=== PATIENT | male | born 1965 | race Caucasian/White ===

== ENCOUNTER 2025-04-10 06:16 | Inpatient (IN) | payer MEDICARE, OTHER ==
[~2025-04-10] VITALS: Ht 157.5 cm; Wt 78.2 kg
[2025-04-10] VITALS (58 sets, daily range): BP systolic 47–117; BP diastolic 17–89; PULSE 102–141; RESP 12–33; TEMP 36.5–36.6; O2SAT 77–92
[~2025-04-10 06:16] MED LIST: ACET-2708 MT; ASPI-1406 MT; ATOR-2 MT; CHOL400D7 PO; GABA-1180 PO; IBUP-2029 MT; MAGN400C MT; MELA5TAB19 MT; METH-773 MT; TAMS-54 MT
[2025-04-10] MEDS ORDERED: CEFEPIME 2GM IN DEXT 5% 100ML IV ONE (06:45)
[2025-04-10] MEDS ORDERED: CEFEPIME 2GM/50ML DUPLEX 50 ML IV NR (07:00)
[2025-04-10 07:36] LABS: HEMATOCRIT. 44.2 % (42.0-52.0); HEMOGLOBIN. 14.9 g/dL (14.0-18.0); MEAN CORPUSCULAR HEMOGLOBIN 30.3 pg (28.0-32.0); MEAN CORPUSCULAR HGB CONC 33.7 g/dL (31.0-37.0); MEAN CORPUSCULAR VOLUME 89.7 fL (80.0-94.0); MEAN PLATELET VOLUME 9.5 fl (7.4-10.4); PLATELET 82 x1000/uL (130-400); RED BLOOD CELL COUNT 4.92 mill/uL (4.7-6.1); RED CELL DISTRIBUTION WIDTH 22.8 % (11.6-14.6); WHITE BLOOD COUNT 12.4 x1000/uL (4.5-11.0)
[2025-04-10 07:38] LABS: DIFFERENTIAL COMMENT 1
[2025-04-10 07:48] LABS: CHLORIDE 90 mEq/L (98-107); POTASSIUM 3.1 mEq/L (3.5-5.1); SODIUM 128 mEq/L (136-145)
[2025-04-10 07:49] LABS: CALCIUM 7.4 mg/dL (8.7-10.4); CARBON DIOXIDE 25 mEq/L (21-32)
[2025-04-10 07:54] LABS: UREA NITROGEN BLOOD 85 mg/dL (9-23)
[2025-04-10 07:56] LABS: ALANINE AMINOTRANSFERASE 387 IU/L (10-49); ALBUMIN 2.4 g/dL (3.2-4.8); ASPARTATE AMINOTRANSFERASE 285 IU/L (<34); BILIRUBIN DIRECT 12.7 mg/dL (<=3.0); BILIRUBIN TOTAL 17.6 mg/dL (0.1-1.0); PROTEIN TOTAL 5.8 g/dL (6.0-8.3)
[2025-04-10] MEDS: LACTATED RINGERS 1,000 ML IV SCH (08:02)
[2025-04-10] MEDS: METRONIDAZOLE 500 MG PREMIX 100 ML IV ONE (08:03)
[2025-04-10 08:08] LABS: GLUCOSE 123 mg/dL (70-105)
[2025-04-10 08:12] LABS: INR 1.7; PROTHROMBIN TIME 17.1 sec (9.6-11.0)
[2025-04-10 08:13] LABS: ANISOCYTOSIS 3+; PLATELET ESTIMATE DECREASED
[2025-04-10 08:14] LABS: CREATININE 2.8 mg/dL (0.6-1.3)
[2025-04-10 08:22] LABS: TROPONIN I HIGH SENSITIVITY 322 ng/L (3.0-53)
[2025-04-10 08:50] LABS: LACTIC ACID 4.7 mmol/L (0.4-2.0)
[2025-04-10 09:20] LABS: TROPONIN I HIGH SENSITIVITY 398 ng/L (3.0-53)
[2025-04-10] MEDS ORDERED: IPRATROPIUM/ALBUTEROL 0.5-3(2.5)MG/3ML NEB HHN PRN (09:45)
[2025-04-10] MEDS: NOREPINEPHRINE 8MG/250ML PMX 250 ML IV ONE (09:51)
[2025-04-10] MEDS: ONDANSETRON HCL 4MG/2ML INJ IV PRN (10:00)
[2025-04-10] MEDS: MVI, ADULT NO.1 10 ML, FOLIC ACID 1 MG, THIAMINE HCL 100 MG in SODIUM CHLORIDE 0.9% 1,0... IV ONE (11:43)
[2025-04-10 12:25] LABS: HEPATITIS B SURFACE ANTIGEN NEGATIVE (Negative)
[2025-04-10 12:46] LABS: HEPATITIS A AB IGM NEGATIVE (Negative)
[2025-04-10 12:47] LABS: HEPATITIS B CORE AB IGM NEGATIVE (Negative); HEPATITIS C AB NON REACTIVE (Neg) (Negative)
[2025-04-10] MEDS: BLOOD SUGAR DIAGNOSTIC STRIP TEST SCH (12:50)
[2025-04-10 13:09] LABS: AMMONIA 29 uMol/L (<32)
[2025-04-10] MEDS: KCL 20MEQ/100ML PREMIX 100 ML IV SCH (13:10)
[2025-04-10] MEDS: NOREPINEPHRINE 8MG/250ML PMX 250 ML IV PRN (13:11)
[2025-04-10 14:08] LABS: BG BASE EXCESS -2.4 mmol/L (-2.0-3.0); BG CARBOXYHEMOGLOBIN 2.3 % (0.5-1.5); BG DEOXYHEMOGLOBIN 7.6 % (0.0-5.0); BG FRACTION INSPIRED OXYGEN 28; BG HCO3 ACT 21.4 mmol/L (21.0-28.0); BG OXYGEN SATURATION 92.2 % (94.0-98.0); BG OXYHEMOGLOBIN 90.1 % (94.0-98.0); BG PCO2 34.4 mmHg (35.0-48.0); BG PH 7.411 (7.350-7.450); BG PO2 67.2 mmHg (83.0-108.0); BG SAMPLE SITE RIGHT BRACHIAL; BG TOTAL HEMOGLOBIN 15.9 g/dL (13.5-17.5); BG VENT MODE NASAL CANNULA
[2025-04-10] MEDS: MEROPENEM 1G/100ML IV SCH (14:08)
[2025-04-10] MEDS: ALBUMIN HUMAN 25GM/500ML (5%) IV SCH (15:58)
[2025-04-10] MEDS: PHENYLEPHRINE 50MG/250ML PMX 250 ML IV PRN (16:16)
[2025-04-10 16:45] LABS: CLARITY URINE CLOUDY (CLEAR); COLOR URINE DARK YELLOW (YELLOW); GLUCOSE URINE 2+ (NEGATIVE); KETONES URINE NEGATIVE (NEGATIVE); LEUKOCYTE ESTERASE URINE NEGATIVE (NEGATIVE); NITRITE URINE NEGATIVE (NEGATIVE); OCCULT BLOOD URINE 3+ (NEGATIVE); PH URINE 5.5 (4.5-8.0); PROTEIN URINE 1+ (NEGATIVE); SPECIFIC GRAVITY URINE 1.015 (1.005-1.030)
[2025-04-10 16:55] LABS: SODIUM URINE RANDOM 13 mEq/L
[2025-04-10 16:57] LABS: BACTERIA URINE 1+; SQUAMOUS EPITHELIAL CELL URINE 1+ /lpf (RARE/1+); WBC URINE 0-2 /hpf (0-2)
[2025-04-10 17:00] LABS: *AMPHETAMINES SCREEN URINE PRESUMPTIVE POSITIVE (NEGATIVE); *BARBITURATES SCREEN URINE NEGATIVE (NEGATIVE); *BENZODIAZEPINES SCREEN URINE NEGATIVE (NEGATIVE)
[2025-04-10 17:01] LABS: *COCAINE SCREEN URINE NEGATIVE (NEGATIVE); CANNABINOID URINE SCREEN NEGATIVE (NEGATIVE); ECSTASY MDMA SCREEN URINE CONF.TEST INDICATED (NEGATIVE); METHADONE URINE SCREEN NEGATIVE (NEGATIVE); OPIATES URINE SCREEN NEGATIVE (NEGATIVE); PHENCYCLIDINE URINE SCREEN NEGATIVE (NEGATIVE)
[2025-04-10 17:56] LABS: OSMOLALITY URINE 384 mOsm/kg (500-850)
[2025-04-10] MEDS: DOBUTAMINE 250MG PREMIX 250 ML IV PRN (20:33)
[2025-04-10] MEDS: DEXT 5%/0.9% NACL 1,000 ML IV SCH (20:40)
[2025-04-10 20:52] LABS: CREATINE KINASE MB FRACTION 92.7 ng/mL (0.5-3.6)
[2025-04-11] VITALS (98 sets, daily range): BP systolic 72–134; BP diastolic 45–111; PULSE 78–136; RESP 11–32; TEMP 36.2–37.1; O2SAT 97–100
[2025-04-11] MEDS: ALBUMIN HUMAN 25GM/500ML (5%) IV NR (00:03)
[2025-04-11] MEDS: LIDOCAINE HCL 2% 5ML SYRINGE IV NR (00:55)
[2025-04-11] MEDS: PHENYLEPHRINE 100 MG in DEXT 5% WATER 240 ML IV PRN (01:12)
[2025-04-11 01:18] LABS: CREATINE KINASE MB FRACTION 70.1 ng/mL (0.5-3.6)
[2025-04-11] MEDS: NOREPINEPHRINE 32 MG in DEXT 5% WATER 218 ML IV PRN (03:18)
[2025-04-11] MEDS: FENTANYL CITRATE/PF 50MCG/ML 2ML VIAL IV NR (03:52)
[2025-04-11 05:52] LABS: HEMATOCRIT. 36.9 % (42.0-52.0); HEMOGLOBIN. 12.3 g/dL (14.0-18.0); MEAN CORPUSCULAR HGB CONC 33.4 g/dL (31.0-37.0); MEAN CORPUSCULAR VOLUME 89.9 fL (80.0-94.0); MEAN PLATELET VOLUME 9.4 fl (7.4-10.4); PLATELET 96 x1000/uL (130-400); RED BLOOD CELL COUNT 4.11 mill/uL (4.7-6.1); RED CELL DISTRIBUTION WIDTH 22.1 % (11.6-14.6); WHITE BLOOD COUNT 10.6 x1000/uL (4.5-11.0)
[2025-04-11 06:07] LABS: CHLORIDE 92 mEq/L (98-107); POTASSIUM 3.7 mEq/L (3.5-5.1); SODIUM 130 mEq/L (136-145)
[2025-04-11 06:08] LABS: CALCIUM 6.4 mg/dL (8.7-10.4); CARBON DIOXIDE 22 mEq/L (21-32)
[2025-04-11 06:13] LABS: GLUCOSE 184 mg/dL (70-105); TRIGLYCERIDE 115 mg/dL (0-150)
[2025-04-11 06:14] LABS: ALANINE AMINOTRANSFERASE 296 IU/L (10-49); LDL CHOLESTEROL 26 mg/dL (5-100)
[2025-04-11 06:15] LABS: ASPARTATE AMINOTRANSFERASE 202 IU/L (<34); BILIRUBIN DIRECT 13.1 mg/dL (<=3.0); CHOLESTEROL 76 mg/dL (<200); HDL CHOLESTEROL < 20 mg/dL (>55); PROTEIN TOTAL 5.9 g/dL (6.0-8.3); UREA NITROGEN BLOOD 101 mg/dL (9-23)
[2025-04-11 06:17] LABS: THYROID STIMULATING HORMONE 1.18 uIU/mL (0.55-4.78)
[2025-04-11 06:21] LABS: TROPONIN I HIGH SENSITIVITY 1872 ng/L (3.0-53)
[2025-04-11] MEDS: KCL 20MEQ/100ML PREMIX 100 ML IV NR (06:36)
[2025-04-11] MEDS: CALCIUM GLUCONATE 1GM PREMIX 50 ML IV NR (06:36)
[2025-04-11 07:24] LABS: DIFFERENTIAL COMMENT 1
[2025-04-11 10:41] LABS: CREATINE KINASE 1058 IU/L (46-171)
[2025-04-11 12:37] LABS: AMMONIA 39 uMol/L (<32)
[2025-04-11 13:44] LABS: ATYPICAL LYMPHOCYTES 1; NUCLEATED RED BLOOD CELLS 2 /100 WBC
[2025-04-11 13:45] LABS: ANISOCYTOSIS 2+; PLATELET ESTIMATE SLIGHTLY DECREASED
[2025-04-12] VITALS (77 sets, daily range): BP systolic 82–134; BP diastolic 47–82; PULSE 77–92; RESP 0–26; TEMP 36.6–37.1; O2SAT 95–99
[2025-04-12 05:46] LABS: HEMATOCRIT. 34.6 % (42.0-52.0); HEMOGLOBIN. 11.7 g/dL (14.0-18.0); MEAN CORPUSCULAR HEMOGLOBIN 29.9 pg (28.0-32.0); MEAN CORPUSCULAR HGB CONC 33.7 g/dL (31.0-37.0); MEAN CORPUSCULAR VOLUME 88.8 fL (80.0-94.0); MEAN PLATELET VOLUME 8.8 fl (7.4-10.4); PLATELET 90 x1000/uL (130-400); RED CELL DISTRIBUTION WIDTH 22.7 % (11.6-14.6); WHITE BLOOD COUNT 11.5 x1000/uL (4.5-11.0)
[2025-04-12 05:46] LABS: CHLORIDE 94 mEq/L (98-107); POTASSIUM 3.4 mEq/L (3.5-5.1); SODIUM 128 mEq/L (136-145)
[2025-04-12 05:49] LABS: CALCIUM 6.9 mg/dL (8.7-10.4); CARBON DIOXIDE 21 mEq/L (21-32)
[2025-04-12 05:54] LABS: CREATININE 3.1 mg/dL (0.6-1.3); GLUCOSE 123 mg/dL (70-105); UREA NITROGEN BLOOD 96 mg/dL (9-23)
[2025-04-12 05:56] LABS: ALANINE AMINOTRANSFERASE 272 IU/L (10-49); ALBUMIN 2.6 g/dL (3.2-4.8); AMMONIA 24 uMol/L (<32); ASPARTATE AMINOTRANSFERASE 172 IU/L (<34)
[2025-04-12 05:57] LABS: BILIRUBIN TOTAL 15.6 mg/dL (0.1-1.0); PROTEIN TOTAL 5.4 g/dL (6.0-8.3)
[2025-04-12 06:26] LABS: TROPONIN I HIGH SENSITIVITY 1525 ng/L (3.0-53)
[2025-04-12 06:47] LABS: DIFFERENTIAL COMMENT 1
[2025-04-12] MEDS ORDERED: POTASSIUM CHLORIDE 20 MEQ in DEXT 5% WATER 90 ML IV ONE (09:00)
[2025-04-12 09:22] LABS: ANISOCYTOSIS 2+; PLATELET ESTIMATE DECREASED
[2025-04-12] MEDS: KCL 20MEQ/100ML PREMIX 100 ML IV NR (09:22)
[2025-04-12] MEDS: ENOXAPARIN 30MG/0.3ML SYR SUBCUT SCH (09:25)
[2025-04-12] MEDS ORDERED: AZTREONAM 1 G in DEXTROSE 5% WATER 50 ML IV SCH (12:45)
[2025-04-12] MEDS: MIDODRINE HCL 5MG TABLET NG SCH (13:01)
[2025-04-12] MEDS: PANTOPRAZOLE SODIUM 40 MG/VIAL IV SCH (13:01)
[2025-04-12] MEDS ORDERED: METRONIDAZOLE 500 MG PREMIX 100 ML IV SCH (14:00)
[2025-04-12] MEDS ORDERED: VANCOMYCIN 1.5GM/250ML IV NR (14:00)
[2025-04-12] MEDS: VANCOMYCIN 2GM PMX (XELLIA) 400 ML IV SCH (15:15)
[2025-04-12 16:21] LABS: POTASSIUM 3.5 mEq/L (3.5-5.1)
[2025-04-12 23:48] LABS: POTASSIUM 3.4 mEq/L (3.5-5.1)
[2025-04-12 23:50] LABS: CALCIUM 7.3 mg/dL (8.7-10.4)
[2025-04-12 23:54] LABS: CREATININE 3.1 mg/dL (0.6-1.3)
[2025-04-12 23:57] LABS: HEMATOCRIT 35.7 % (42.0-52.0); HEMOGLOBIN 11.9 g/dL (14.0-18.0); MEAN CORPUSCULAR HEMOGLOBIN 29.4 pg (28.0-32.0); MEAN CORPUSCULAR HGB CONC 33.3 g/dL (31.0-37.0); MEAN CORPUSCULAR VOLUME 88.5 fL (80.0-94.0); PLATELET 88 x1000/uL (130-400); RED BLOOD CELL COUNT 4.04 mill/uL (4.7-6.1); RED CELL DISTRIBUTION WIDTH 22.3 % (11.6-14.6); WHITE BLOOD COUNT 11.1 x1000/uL (4.5-11.0)
[2025-04-13] VITALS (82 sets, daily range): BP systolic 69–133; BP diastolic 38–116; PULSE 54–98; RESP 8–31; TEMP 36.4–37.1; O2SAT 94–100
[2025-04-13 05:54] LABS: HEMATOCRIT. 35.9 % (42.0-52.0); HEMOGLOBIN. 12.1 g/dL (14.0-18.0); MEAN CORPUSCULAR HEMOGLOBIN 29.7 pg (28.0-32.0); MEAN CORPUSCULAR HGB CONC 33.7 g/dL (31.0-37.0); MEAN CORPUSCULAR VOLUME 88.2 fL (80.0-94.0); MEAN PLATELET VOLUME 8.9 fl (7.4-10.4); PLATELET 97 x1000/uL (130-400); RED BLOOD CELL COUNT 4.07 mill/uL (4.7-6.1); RED CELL DISTRIBUTION WIDTH 22.3 % (11.6-14.6); WHITE BLOOD COUNT 12.1 x1000/uL (4.5-11.0)
[2025-04-13 06:12] LABS: ALPHA FETOPROTEIN TUMOR MARKER < 1.8 ng/mL (0.0-8.4); CARCINOEMBRYONIC AG - SEND OUT 7.9 ng/mL (0.0-4.7)
[2025-04-13 06:15] LABS: CHLORIDE 100 mEq/L (98-107); POTASSIUM 3.2 mEq/L (3.5-5.1); SODIUM 130 mEq/L (136-145)
[2025-04-13 06:19] LABS: CARBON DIOXIDE 20 mEq/L (21-32)
[2025-04-13 06:20] LABS: CALCIUM 7.7 mg/dL (8.7-10.4)
[2025-04-13 06:23] LABS: PROTEIN TOTAL 5.6 g/dL (6.0-8.3)
[2025-04-13 06:24] LABS: ALANINE AMINOTRANSFERASE 235 IU/L (10-49)
[2025-04-13 06:25] LABS: CREATININE 3.1 mg/dL (0.6-1.3); GLUCOSE 109 mg/dL (70-105); UREA NITROGEN BLOOD 86 mg/dL (9-23)
[2025-04-13 06:26] LABS: ALBUMIN 2.6 g/dL (3.2-4.8); ASPARTATE AMINOTRANSFERASE 148 IU/L (<34); CREATINE KINASE 379 IU/L (46-171)
[2025-04-13 06:27] LABS: PHOSPHORUS 3.6 mg/dL (2.5-4.9)
[2025-04-13] MEDS: DEXT 5%/0.45% NACL 1000ML 1,000 ML IV SCH (06:41)
[2025-04-13 06:54] LABS: BILIRUBIN TOTAL 13.4 mg/dL (0.1-1.0)
[2025-04-13 07:58] LABS: DIFFERENTIAL COMMENT 1
[2025-04-13] MEDS: KCL 20MEQ/100ML PREMIX 100 ML IV NR (08:09)
[2025-04-13] MEDS: MEROPENEM 500MG/50ML 50 ML IV SCH (08:10)
[2025-04-13] MEDS: FUROSEMIDE 40MG/4ML VIAL IVP SCH (08:44)
[2025-04-13] MEDS: POTASSIUM CHLORIDE 10MEQ TABLET SR PO SCH (08:44)
[2025-04-13] MEDS ORDERED: DEXT 5%/0.9% NACL 1,000 ML IV SCH (09:00)
[2025-04-13 11:55] LABS: ANISOCYTOSIS 3+; PLATELET ESTIMATE DECREASED
[2025-04-13 18:41] LABS: POTASSIUM 3.1 mEq/L (3.5-5.1)
[2025-04-13 18:43] LABS: CALCIUM 7.4 mg/dL (8.7-10.4)
[2025-04-14] VITALS (52 sets, daily range): BP systolic 71–111; BP diastolic 43–78; PULSE 80–94; RESP 11–28; TEMP 36.4–37.1; O2SAT 94–100
[2025-04-14] MEDS ORDERED: NALOXONE HCL 0.4MG/ML VIAL IV PRN (00:30)
[2025-04-14] MEDS ORDERED: MORPHINE SULFATE 4 MG/ML INJ (FOR IV/IM USE) IV PRN (00:30)
[2025-04-14 05:29] LABS: HEMATOCRIT. 35.7 % (42.0-52.0); MEAN CORPUSCULAR HEMOGLOBIN 29.7 pg (28.0-32.0); MEAN CORPUSCULAR HGB CONC 33.7 g/dL (31.0-37.0); MEAN PLATELET VOLUME 9.2 fl (7.4-10.4); PLATELET 72 x1000/uL (130-400); RED BLOOD CELL COUNT 4.06 mill/uL (4.7-6.1); RED CELL DISTRIBUTION WIDTH 22.4 % (11.6-14.6); WHITE BLOOD COUNT 9.6 x1000/uL (4.5-11.0)
[2025-04-14 05:41] LABS: INR 1.4; PROTHROMBIN TIME 14.8 sec (9.6-11.0)
[2025-04-14 05:44] LABS: DIFFERENTIAL COMMENT 1
[2025-04-14] MEDS: METRONIDAZOLE 500 MG PREMIX 100 ML IV SCH ×2 (05:52→13:03)
[2025-04-14] MEDS: CEFTRIAXONE 2GM/50ML 50 ML IV SCH (05:53)
[2025-04-14 06:00] LABS: CARBON DIOXIDE 23 mEq/L (21-32); CHLORIDE 101 mEq/L (98-107); POTASSIUM 2.9 mEq/L (3.5-5.1); SODIUM 135 mEq/L (136-145)
[2025-04-14 06:01] LABS: CALCIUM 7.7 mg/dL (8.7-10.4)
[2025-04-14 06:05] LABS: GLUCOSE 78 mg/dL (70-105)
[2025-04-14 06:06] LABS: UREA NITROGEN BLOOD 81 mg/dL (9-23)
[2025-04-14 06:07] LABS: ALANINE AMINOTRANSFERASE 196 IU/L (10-49); ALBUMIN 2.5 g/dL (3.2-4.8); ASPARTATE AMINOTRANSFERASE 170 IU/L (<34)
[2025-04-14 06:08] LABS: BILIRUBIN TOTAL 12.6 mg/dL (0.1-1.0); PHOSPHORUS 3.5 mg/dL (2.5-4.9); PROTEIN TOTAL 5.4 g/dL (6.0-8.3)
[2025-04-14] MEDS: KCL 20MEQ/100ML PREMIX 100 ML IV SCH ×2 (06:14→09:46)
[2025-04-14] MEDS: POTASSIUM CHLORIDE 20MEQ/PACKET PO SCH (06:14)
[2025-04-14] MEDS: DEXTROSE 50% WATER 50ML SYRINGE IV PRN (07:49)
[2025-04-14 08:43] LABS: ANISOCYTOSIS 2+; PLATELET ESTIMATE DECREASED
[2025-04-14] MEDS: FUROSEMIDE 40MG/4ML VIAL IVP SCH (10:15)
[2025-04-14 11:38] LABS: ETHANOL URINE Negative % (Cutoff=0.020)
[2025-04-14 13:10] LABS: POTASSIUM 3.1 mEq/L (3.5-5.1)
[2025-04-14] MEDS: POTASSIUM CHLORIDE 20MEQ TABLET SR PO NR (17:27)
[2025-04-14 18:32] LABS: POTASSIUM 3.1 mEq/L (3.5-5.1)
[2025-04-14 22:19] LABS: POTASSIUM 3.3 mEq/L (3.5-5.1)
[2025-04-14] MEDS: ALBUMIN HUMAN 12.5G/250ML (5%) IV PRN (23:08)
[2025-04-15] VITALS (56 sets, daily range): BP systolic 74–112; BP diastolic 33–83; PULSE 79–98; RESP 10–22; TEMP 36.3–36.7; O2SAT 91–99
[2025-04-15] MEDS: KCL 20MEQ/100ML PREMIX 100 ML IV SCH ×2 (04:58→08:27)
[2025-04-15 05:53] LABS: HEMOGLOBIN. 11.5 g/dL (14.0-18.0); MEAN CORPUSCULAR HEMOGLOBIN 29.7 pg (28.0-32.0); MEAN CORPUSCULAR HGB CONC 33.7 g/dL (31.0-37.0); MEAN PLATELET VOLUME 9.1 fl (7.4-10.4); PLATELET 68 x1000/uL (130-400); RED BLOOD CELL COUNT 3.86 mill/uL (4.7-6.1); RED CELL DISTRIBUTION WIDTH 21.8 % (11.6-14.6); WHITE BLOOD COUNT 8.6 x1000/uL (4.5-11.0)
[2025-04-15 06:01] LABS: CHLORIDE 99 mEq/L (98-107); POTASSIUM 3.2 mEq/L (3.5-5.1); SODIUM 137 mEq/L (136-145)
[2025-04-15 06:02] LABS: CARBON DIOXIDE 27 mEq/L (21-32)
[2025-04-15 06:07] LABS: CREATININE 2.8 mg/dL (0.6-1.3)
[2025-04-15 06:08] LABS: ALANINE AMINOTRANSFERASE 191 IU/L (10-49); ASPARTATE AMINOTRANSFERASE 265 IU/L (<34); GLUCOSE 88 mg/dL (70-105); UREA NITROGEN BLOOD 73 mg/dL (9-23)
[2025-04-15 06:09] LABS: ALBUMIN 2.6 g/dL (3.2-4.8)
[2025-04-15 06:10] LABS: BILIRUBIN TOTAL 14.2 mg/dL (0.1-1.0); PROTEIN TOTAL 5.4 g/dL (6.0-8.3)
[2025-04-15 06:14] LABS: DIFFERENTIAL COMMENT 1
[2025-04-15 07:43] LABS: ANISOCYTOSIS 3+; PLATELET ESTIMATE DECREASED; TARGET CELLS 1+
[2025-04-15] MEDS: CALCIUM GLUCONATE 1GM PREMIX 50 ML IV SCH (08:26)
[2025-04-15] MEDS: POTASSIUM CHLORIDE 20MEQ TABLET SR PO SCH (08:26)
[2025-04-15] MEDS: FUROSEMIDE 40MG/4ML VIAL IVP SCH (08:27)
[2025-04-15 12:27] LABS: POTASSIUM 3.4 mEq/L (3.5-5.1)
[2025-04-15 21:56] LABS: HEMATOCRIT 38.1 % (42.0-52.0); HEMOGLOBIN 12.6 g/dL (14.0-18.0)
[2025-04-16] VITALS (11 sets, daily range): BP systolic 84–132; BP diastolic 51–83; PULSE 77–104; RESP 13–20; TEMP 36.2–36.7; O2SAT 90–100
[2025-04-16 07:07] LABS: CHLORIDE 103 mEq/L (98-107); POTASSIUM 3.7 mEq/L (3.5-5.1); SODIUM 137 mEq/L (136-145)
[2025-04-16 07:10] LABS: CARBON DIOXIDE 26 mEq/L (21-32)
[2025-04-16 07:11] LABS: CALCIUM 8.7 mg/dL (8.7-10.4)
[2025-04-16 07:15] LABS: CREATININE 2.6 mg/dL (0.6-1.3)
[2025-04-16 07:16] LABS: GLUCOSE 83 mg/dL (70-105); UREA NITROGEN BLOOD 59 mg/dL (9-23)
[2025-04-16 07:17] LABS: ALANINE AMINOTRANSFERASE 167 IU/L (10-49); ALBUMIN 2.9 g/dL (3.2-4.8); ASPARTATE AMINOTRANSFERASE 187 IU/L (<34)
[2025-04-16 07:18] LABS: BILIRUBIN DIRECT 11.1 mg/dL (<=3.0); BILIRUBIN TOTAL 15.4 mg/dL (0.1-1.0)
[2025-04-16] MEDS: MAGNESIUM 4 G PREMIX 100 ML IV ONE (09:30)
[2025-04-16] MEDS: CHOLESTYRAMINE/SUCROSE 4G POWDER PACKET PO SCH (09:50)
[2025-04-16 09:55] LABS: HEMATOCRIT. 36.4 % (42.0-52.0); HEMOGLOBIN. 12.1 g/dL (14.0-18.0); MEAN CORPUSCULAR HEMOGLOBIN 29.6 pg (28.0-32.0); MEAN CORPUSCULAR HGB CONC 33.4 g/dL (31.0-37.0); MEAN CORPUSCULAR VOLUME 88.6 fL (80.0-94.0); MEAN PLATELET VOLUME 9.7 fl (7.4-10.4); PLATELET 76 x1000/uL (130-400); RED CELL DISTRIBUTION WIDTH 21.7 % (11.6-14.6); WHITE BLOOD COUNT 9.3 x1000/uL (4.5-11.0)
[2025-04-16 09:57] LABS: DIFFERENTIAL COMMENT 1
[2025-04-16 10:38] LABS: TARGET CELLS 2+
[2025-04-16 10:39] LABS: ANISOCYTOSIS 3+; PLATELET ESTIMATE DECREASED
[2025-04-16] MEDS: TAMSULOSIN HCL 0.4MG SR CAPSULE PO SCH (10:47)
[2025-04-16 13:03] LABS: HEMATOCRIT. 31.8 % (42.0-52.0); HEMOGLOBIN. 10.8 g/dL (14.0-18.0); MEAN CORPUSCULAR HEMOGLOBIN 29.8 pg (28.0-32.0); MEAN CORPUSCULAR HGB CONC 34.1 g/dL (31.0-37.0); MEAN CORPUSCULAR VOLUME 87.4 fL (80.0-94.0); MEAN PLATELET VOLUME 9.8 fl (7.4-10.4); PLATELET 73 x1000/uL (130-400); RED BLOOD CELL COUNT 3.64 mill/uL (4.7-6.1); RED CELL DISTRIBUTION WIDTH 20.9 % (11.6-14.6)
[2025-04-16 13:06] LABS: DIFFERENTIAL COMMENT 1
[2025-04-16 13:07] LABS: ANTI-NUCLEAR ANTIBODIES DIRECT Negative (Negative)
[2025-04-16 13:20] LABS: INR 1.5; PARTIAL THROMBOPLASTIN TIME 33.6 sec (23.4-31.0); PROTHROMBIN TIME 15.3 sec (9.6-11.0)
[2025-04-16] MEDS: FUROSEMIDE 40MG/4ML VIAL IVP SCH (13:30)
[2025-04-16 13:39] LABS: PLATELET ESTIMATE DECREASED; TARGET CELLS 2+
[2025-04-16 13:40] LABS: ANISOCYTOSIS 3+
[2025-04-16 16:51] LABS: HEMATOCRIT 38.7 % (42.0-52.0); HEMOGLOBIN 12.8 g/dL (14.0-18.0); MEAN CORPUSCULAR HEMOGLOBIN 29.7 pg (28.0-32.0); MEAN CORPUSCULAR HGB CONC 33.2 g/dL (31.0-37.0); MEAN CORPUSCULAR VOLUME 89.4 fL (80.0-94.0); PLATELET 67 x1000/uL (130-400); RED BLOOD CELL COUNT 4.32 mill/uL (4.7-6.1); RED CELL DISTRIBUTION WIDTH 21.8 % (11.6-14.6); WHITE BLOOD COUNT 9.2 x1000/uL (4.5-11.0)
[2025-04-17] VITALS: BP 100/75; PULSE 94; RESP 30; TEMP 36.5; O2SAT 95
[2025-04-17 04:00] VITALS: BP 95/70; PULSE 91; RESP 17; TEMP 36.8; O2SAT 95
[2025-04-17 07:17] LABS: CARBON DIOXIDE 31 mEq/L (21-32); CHLORIDE 100 mEq/L (98-107); POTASSIUM 3.5 mEq/L (3.5-5.1); SODIUM 139 mEq/L (136-145)
[2025-04-17 07:18] LABS: CALCIUM 7.7 mg/dL (8.7-10.4)
[2025-04-17 07:22] LABS: CREATININE 1.9 mg/dL (0.6-1.3)
[2025-04-17 07:23] LABS: GLUCOSE 117 mg/dL (70-105); UREA NITROGEN BLOOD 48 mg/dL (9-23)
[2025-04-17 07:24] LABS: ALANINE AMINOTRANSFERASE 132 IU/L (10-49); AMMONIA 30 uMol/L (<32); ASPARTATE AMINOTRANSFERASE 121 IU/L (<34)
[2025-04-17 07:25] LABS: ALBUMIN 2.6 g/dL (3.2-4.8); BILIRUBIN DIRECT 10.1 mg/dL (<=3.0); BILIRUBIN TOTAL 12.8 mg/dL (0.1-1.0); HEMATOCRIT. 30.2 % (42.0-52.0); HEMOGLOBIN. 10.2 g/dL (14.0-18.0); MEAN CORPUSCULAR HEMOGLOBIN 29.4 pg (28.0-32.0); MEAN CORPUSCULAR HGB CONC 33.9 g/dL (31.0-37.0); MEAN CORPUSCULAR VOLUME 86.7 fL (80.0-94.0); MEAN PLATELET VOLUME 9.8 fl (7.4-10.4); PHOSPHORUS 2.2 mg/dL (2.5-4.9); PLATELET 73 x1000/uL (130-400); PROTEIN TOTAL 5.4 g/dL (6.0-8.3); RED BLOOD CELL COUNT 3.48 mill/uL (4.7-6.1); RED CELL DISTRIBUTION WIDTH 21.3 % (11.6-14.6)
[2025-04-17 07:43] LABS: DIFFERENTIAL COMMENT 1
[2025-04-17 08:00] VITALS: PULSE 83; RESP 17; TEMP 36.9; O2SAT 97
[2025-04-17] MEDS: FOLIC ACID/VITAMIN B COMP W-C TABLET PO SCH (09:00)
[2025-04-17 09:52] LABS: ATYPICAL LYMPHOCYTES 1; PLATELET ESTIMATE DECREASED
[2025-04-17 09:53] LABS: TARGET CELLS 1+
[2025-04-17 09:54] LABS: ANISOCYTOSIS 1+
[2025-04-17] MEDS: POTASSIUM PHOSPHATE 20 MMOL in DEXT 5% WATER 243.3333 ML IV SCH (10:00)
[2025-04-17] MEDS: POTASSIUM CHLORIDE 20MEQ TABLET SR PO SCH (10:39)
[2025-04-17] MEDS: MAGNESIUM 2 G PREMIX 50 ML IV SCH (10:52)
[2025-04-17 12:35] VITALS: BP 85/63; PULSE 88; RESP 17; O2SAT 97
[2025-04-17 13:07] LABS: ATYPICAL P-ANCA <1:20 titer (Neg:<1:20); CYTOPLASMIC C-ANCA <1:20 titer (Neg:<1:20); MITOCHONDRIAL M2 AB <20.0 Units (0.0-20.0); PERINUCLEAR P-ANCA <1:20 titer (Neg:<1:20)
[2025-04-17 20:00] VITALS: BP 89/63; PULSE 95; RESP 18; TEMP 36.4; O2SAT 93
[2025-04-17 22:00] VITALS: BP 89/58; PULSE 83; RESP 23; O2SAT 100
[2025-04-17] MEDS: MELATONIN 3MG TABLET PO PRN (23:55)
[2025-04-18] VITALS (7 sets, daily range): BP systolic 83–106; BP diastolic 63–75; PULSE 89–102; RESP 16–23; TEMP 36.4–36.9; O2SAT 88–98
[2025-04-18] MEDS: ZOLPIDEM TARTRATE 5MG TABLET PO NR (02:49)
[2025-04-18 07:11] LABS: CHLORIDE 97 mEq/L (98-107); POTASSIUM 3.3 mEq/L (3.5-5.1); SODIUM 134 mEq/L (136-145)
[2025-04-18 07:12] LABS: CALCIUM 7.6 mg/dL (8.7-10.4); CARBON DIOXIDE 31 mEq/L (21-32)
[2025-04-18 07:13] LABS: BASOPHILS % 0.8 % (0.0-2.0); EOSINOPHILS % 1.6 % (0.0-5.0); HEMATOCRIT. 28.8 % (42.0-52.0); HEMOGLOBIN. 9.7 g/dL (14.0-18.0); LYMPHOCYTES % 9.1 % (20.0-50.0); MEAN CORPUSCULAR HEMOGLOBIN 29.3 pg (28.0-32.0); MEAN CORPUSCULAR HGB CONC 33.8 g/dL (31.0-37.0); MEAN CORPUSCULAR VOLUME 86.9 fL (80.0-94.0); MONOCYTES % 12.6 % (2.0-8.0); NEUTROPHILS % 75.9 % (40.0-76.0); PLATELET 84 x1000/uL (130-400); RED BLOOD CELL COUNT 3.31 mill/uL (4.7-6.1); RED CELL DISTRIBUTION WIDTH 21.3 % (11.6-14.6); WHITE BLOOD COUNT 8.2 x1000/uL (4.5-11.0)
[2025-04-18 07:17] LABS: CREATININE 1.6 mg/dL (0.6-1.3); GLUCOSE 114 mg/dL (70-105); UREA NITROGEN BLOOD 35 mg/dL (9-23)
[2025-04-18 07:19] LABS: ALANINE AMINOTRANSFERASE 116 IU/L (10-49); ALBUMIN 2.6 g/dL (3.2-4.8); ASPARTATE AMINOTRANSFERASE 100 IU/L (<34); BILIRUBIN DIRECT 9.2 mg/dL (<=3.0); BILIRUBIN TOTAL 11.4 mg/dL (0.1-1.0); PHOSPHORUS 2.5 mg/dL (2.5-4.9); PROTEIN TOTAL 5.6 g/dL (6.0-8.3)
[2025-04-18] MEDS: FAMOTIDINE 20MG/2ML VIAL IV SCH (10:48)
[2025-04-18] MEDS: MAGNESIUM 4 G PREMIX 100 ML IV ONE (10:48)
[2025-04-18 17:09] LABS: ANTI-MYELOPEROXIDASE AB < 0.2 units (0.0-0.9); ANTI-PROTEINASE 3 ABS < 0.2 units (0.0-0.9)
[2025-04-18] MEDS: TRAZODONE HCL 50MG TABLET PO SCH (20:32)
[2025-04-19] VITALS (13 sets, daily range): BP systolic 71–107; BP diastolic 48–80; PULSE 83–94; RESP 16–30; TEMP 36.1–37; O2SAT 93–100
[2025-04-19] MEDS: MELATONIN 3MG TABLET PO SCH (00:40)
[2025-04-19] MEDS: MIDODRINE HCL 5MG TABLET PO NR (02:31)
[2025-04-19 07:31] LABS: BASOPHILS % 1.1 % (0.0-2.0); HEMATOCRIT. 26.4 % (42.0-52.0); LYMPHOCYTES % 9.5 % (20.0-50.0); MEAN CORPUSCULAR HEMOGLOBIN 29.9 pg (28.0-32.0); MEAN CORPUSCULAR HGB CONC 34.2 g/dL (31.0-37.0); MEAN CORPUSCULAR VOLUME 87.6 fL (80.0-94.0); MEAN PLATELET VOLUME 10.1 fl (7.4-10.4); MONOCYTES % 13.6 % (2.0-8.0); NEUTROPHILS % 73.8 % (40.0-76.0); PLATELET 114 x1000/uL (130-400); RED BLOOD CELL COUNT 3.02 mill/uL (4.7-6.1); RED CELL DISTRIBUTION WIDTH 21.6 % (11.6-14.6); WHITE BLOOD COUNT 9.2 x1000/uL (4.5-11.0)
[2025-04-19 07:36] LABS: CHLORIDE 97 mEq/L (98-107); POTASSIUM 3.2 mEq/L (3.5-5.1); SODIUM 136 mEq/L (136-145)
[2025-04-19 07:38] LABS: CALCIUM 7.6 mg/dL (8.7-10.4); CARBON DIOXIDE 31 mEq/L (21-32)
[2025-04-19 07:43] LABS: CREATININE 1.5 mg/dL (0.6-1.3); GLUCOSE 117 mg/dL (70-105); UREA NITROGEN BLOOD 32 mg/dL (9-23)
[2025-04-19 07:44] LABS: ALANINE AMINOTRANSFERASE 95 IU/L (10-49); ASPARTATE AMINOTRANSFERASE 75 IU/L (<34)
[2025-04-19 07:45] LABS: ALBUMIN 2.6 g/dL (3.2-4.8); BILIRUBIN DIRECT 7.6 mg/dL (<=3.0); BILIRUBIN TOTAL 9.3 mg/dL (0.1-1.0); PHOSPHORUS 2.4 mg/dL (2.5-4.9); PROTEIN TOTAL 5.5 g/dL (6.0-8.3)
[2025-04-19] MEDS: POTASSIUM-SODIUM PHOSPHATE POWDER PACKET PO SCH (09:04)
[2025-04-19] MEDS: MAGNESIUM 4 G PREMIX 100 ML IV SCH (10:37)
[2025-04-19] MEDS: POTASSIUM PHOSPHATE 20 MMOL in DEXT 5% WATER 243.3333 ML IV ONE (13:15)
[2025-04-19] MEDS ORDERED: SODIUM CHLORIDE 0.9% 250 ML IV NR (18:15)
[2025-04-20] VITALS (8 sets, daily range): BP systolic 61–101; BP diastolic 52–73; PULSE 78–92; RESP 19–26; TEMP 36.2–36.6; O2SAT 92–100
[2025-04-20 06:26] LABS: BASOPHILS % 0.8 % (0.0-2.0); EOSINOPHILS % 1.4 % (0.0-5.0); HEMATOCRIT. 27.1 % (42.0-52.0); HEMOGLOBIN. 9.2 g/dL (14.0-18.0); MEAN CORPUSCULAR HEMOGLOBIN 29.8 pg (28.0-32.0); MEAN CORPUSCULAR VOLUME 87.5 fL (80.0-94.0); MEAN PLATELET VOLUME 9.8 fl (7.4-10.4); MONOCYTES % 13.9 % (2.0-8.0); NEUTROPHILS % 70.9 % (40.0-76.0); PLATELET 133 x1000/uL (130-400); RED CELL DISTRIBUTION WIDTH 21.4 % (11.6-14.6); WHITE BLOOD COUNT 9.4 x1000/uL (4.5-11.0)
[2025-04-20 06:28] LABS: CALCIUM 8.3 mg/dL (8.7-10.4); CARBON DIOXIDE 29 mEq/L (21-32); CHLORIDE 98 mEq/L (98-107); POTASSIUM 3.6 mEq/L (3.5-5.1); SODIUM 136 mEq/L (136-145)
[2025-04-20 06:33] LABS: CREATININE 1.5 mg/dL (0.6-1.3); GLUCOSE 108 mg/dL (70-105)
[2025-04-20 06:34] LABS: UREA NITROGEN BLOOD 31 mg/dL (9-23)
[2025-04-20 06:36] LABS: PHOSPHORUS 2.9 mg/dL (2.5-4.9)
[2025-04-20] MEDS: MIDODRINE HCL 5MG TABLET NG SCH (12:54)
[2025-04-21] VITALS (10 sets, daily range): BP systolic 83–106; BP diastolic 31–84; PULSE 82–95; RESP 12–23; TEMP 36.2–36.8; O2SAT 92–100
[2025-04-21 05:58] LABS: BASOPHILS % 1.2 % (0.0-2.0); EOSINOPHILS % 1.8 % (0.0-5.0); HEMATOCRIT. 27.6 % (42.0-52.0); HEMOGLOBIN. 9.2 g/dL (14.0-18.0); LYMPHOCYTES % 18.3 % (20.0-50.0); MEAN CORPUSCULAR HEMOGLOBIN 29.9 pg (28.0-32.0); MEAN CORPUSCULAR HGB CONC 33.3 g/dL (31.0-37.0); MEAN CORPUSCULAR VOLUME 89.8 fL (80.0-94.0); MEAN PLATELET VOLUME 9.7 fl (7.4-10.4); MONOCYTES % 14.7 % (2.0-8.0); PLATELET 174 x1000/uL (130-400); RED BLOOD CELL COUNT 3.07 mill/uL (4.7-6.1); RED CELL DISTRIBUTION WIDTH 21.5 % (11.6-14.6); WHITE BLOOD COUNT 9.9 x1000/uL (4.5-11.0)
[2025-04-21 06:05] LABS: CARBON DIOXIDE 32 mEq/L (21-32); CHLORIDE 94 mEq/L (98-107); POTASSIUM 3.8 mEq/L (3.5-5.1); SODIUM 134 mEq/L (136-145)
[2025-04-21 06:06] LABS: CALCIUM 8.6 mg/dL (8.7-10.4)
[2025-04-21 06:09] LABS: UREA NITROGEN BLOOD 35 mg/dL (9-23)
[2025-04-21 06:10] LABS: CREATININE 1.7 mg/dL (0.6-1.3)
[2025-04-21 06:11] LABS: GLUCOSE 109 mg/dL (70-105)
[2025-04-21 06:12] LABS: ALANINE AMINOTRANSFERASE 82 IU/L (10-49); ALBUMIN 3.2 g/dL (3.2-4.8); ASPARTATE AMINOTRANSFERASE 57 IU/L (<34)
[2025-04-21 06:13] LABS: BILIRUBIN DIRECT 6.8 mg/dL (<=3.0); BILIRUBIN TOTAL 8.7 mg/dL (0.1-1.0); PHOSPHORUS 3.5 mg/dL (2.5-4.9); PROTEIN TOTAL 6.9 g/dL (6.0-8.3)
[2025-04-21] MEDS: MAGNESIUM 2 G PREMIX 50 ML IV NR (09:43)
[2025-04-21] MEDS: FUROSEMIDE 40MG TABLET PO SCH (09:45)
[2025-04-21] MEDS: MIDODRINE HCL 5MG TABLET PO SCH (15:26)
[2025-04-21] MEDS: MAGNESIUM OXIDE 400MG TABLET PO SCH (15:27)
[2025-04-22] VITALS (7 sets, daily range): BP systolic 92–113; BP diastolic 68–95; PULSE 85–94; RESP 13–26; TEMP 36.1–36.6; O2SAT 97–100
[2025-04-22] MEDS: ACETAMINOPHEN 325MG TABLET PO PRN (01:27)
[2025-04-22 06:17] LABS: HEMATOCRIT. 28.7 % (42.0-52.0); HEMOGLOBIN. 9.7 g/dL (14.0-18.0); MEAN CORPUSCULAR HEMOGLOBIN 30.3 pg (28.0-32.0); MEAN CORPUSCULAR HGB CONC 33.9 g/dL (31.0-37.0); MEAN CORPUSCULAR VOLUME 89.2 fL (80.0-94.0); MEAN PLATELET VOLUME 9.9 fl (7.4-10.4); PLATELET 204 x1000/uL (130-400); RED BLOOD CELL COUNT 3.22 mill/uL (4.7-6.1); RED CELL DISTRIBUTION WIDTH 21.7 % (11.6-14.6); WHITE BLOOD COUNT 9.2 x1000/uL (4.5-11.0)
[2025-04-22 06:24] LABS: POTASSIUM 4.9 mEq/L (3.5-5.1)
[2025-04-22 06:26] LABS: CALCIUM 7.9 mg/dL (8.7-10.4)
[2025-04-22 06:31] LABS: CREATININE 1.6 mg/dL (0.6-1.3)
[2025-04-22 06:35] LABS: DIFFERENTIAL COMMENT 1
[2025-04-22 13:34] LABS: ANISOCYTOSIS 3+; PLATELET ESTIMATE NORMAL; TARGET CELLS 1+
[2025-04-22] MEDS: MIDODRINE HCL 5MG TABLET PO SCH (14:36)
[2025-04-23] VITALS: BP 107/72; PULSE 100; RESP 18; TEMP 36.3; O2SAT 90
[2025-04-23 04:00] VITALS: BP_SYST 109; PULSE 98; RESP 18; TEMP 36.4; O2SAT 93
[2025-04-23 06:40] LABS: CHLORIDE 98 mEq/L (98-107); POTASSIUM 5.4 mEq/L (3.5-5.1); SODIUM 134 mEq/L (136-145)
[2025-04-23 06:41] LABS: CALCIUM 8.9 mg/dL (8.7-10.4); CARBON DIOXIDE 27 mEq/L (21-32)
[2025-04-23 06:45] LABS: BASOPHILS % 1.2 % (0.0-2.0); HEMATOCRIT. 28.5 % (42.0-52.0); HEMOGLOBIN. 9.6 g/dL (14.0-18.0); LYMPHOCYTES % 16.8 % (20.0-50.0); MEAN CORPUSCULAR HEMOGLOBIN 30.7 pg (28.0-32.0); MEAN CORPUSCULAR HGB CONC 33.6 g/dL (31.0-37.0); MEAN CORPUSCULAR VOLUME 91.5 fL (80.0-94.0); MEAN PLATELET VOLUME 9.7 fl (7.4-10.4); MONOCYTES % 11.5 % (2.0-8.0); NEUTROPHILS % 68.5 % (40.0-76.0); PLATELET 219 x1000/uL (130-400); RED BLOOD CELL COUNT 3.11 mill/uL (4.7-6.1); RED CELL DISTRIBUTION WIDTH 22.3 % (11.6-14.6); WHITE BLOOD COUNT 9.7 x1000/uL (4.5-11.0)
[2025-04-23 06:46] LABS: ADD RBC MORPHOLOGY NO; CREATININE 1.9 mg/dL (0.6-1.3); DIFFERENTIAL COMMENT 1; GLUCOSE 101 mg/dL (70-105); UREA NITROGEN BLOOD 43 mg/dL (9-23)
[2025-04-23 06:48] LABS: PHOSPHORUS 3.7 mg/dL (2.5-4.9)
[2025-04-23 08:00] VITALS: BP 101/66; PULSE 85; RESP 20; TEMP 35.6; O2SAT 96
[2025-04-23] MEDS: PREDNISONE 20MG TABLET PO SCH (11:06)
[2025-04-23 12:00] VITALS: BP 100/66; PULSE 89; RESP 20; TEMP 36.2; O2SAT 94
[2025-04-23] MEDS: DEXTROSE 50% WATER 50ML SYRINGE IV SCH (15:00)
[2025-04-23] MEDS ORDERED: ALBUTEROL (0.083%) 2.5MG/3ML NEB HHN SCH (15:00)
[2025-04-23] MEDS: INSULIN REGULAR (HUMULIN R) 1000UNITS/10ML VIAL IV SCH (15:00)
[2025-04-23] MEDS: SODIUM POLYSTYRENE SULFONATE 15 G/60 ML BOT PO SCH (15:00)
[2025-04-23 16:00] VITALS: BP 112/88; PULSE 88; RESP 19; TEMP 36.2; O2SAT 97
[2025-04-23] MEDS: CARVEDILOL 3.125 MG TABLET PO SCH (21:00)
[2025-04-24] VITALS: BP 99/70; PULSE 92; RESP 18; TEMP 36.2; O2SAT 100
[2025-04-24 04:00] VITALS: BP 98/7; PULSE 103; RESP 19; TEMP 35.6; O2SAT 98
[2025-04-24] MEDS: MIDODRINE HCL 5MG TABLET PO SCH (06:12)
[2025-04-24 08:00] VITALS: BP 95/63; PULSE 84; RESP 20; TEMP 36.3; O2SAT 95
[2025-04-24 08:21] LABS: CLARITY URINE CLEAR (CLEAR); COLOR URINE DARK YELLOW (YELLOW); GLUCOSE URINE NEGATIVE (NEGATIVE); KETONES URINE NEGATIVE (NEGATIVE); LEUKOCYTE ESTERASE URINE TRACE (NEGATIVE); NITRITE URINE NEGATIVE (NEGATIVE); OCCULT BLOOD URINE NEGATIVE (NEGATIVE); PH URINE 5.5 (4.5-8.0); PROTEIN URINE TRACE (NEGATIVE); SPECIFIC GRAVITY URINE 1.013 (1.005-1.030); UROBILINOGEN URINE 0.2 E.U./dL (0.2-1.0)
[2025-04-24 08:44] LABS: BACTERIA URINE NONE SEEN; HYALINE CASTS URINE 0-5 /lpf; RBC URINE 0-2 /hpf (0-2); SQUAMOUS EPITHELIAL CELL URINE RARE /lpf (RARE/1+); YEAST URINE NONE SEEN
[2025-04-24 10:23] LABS: HEMATOCRIT. 27.9 % (42.0-52.0); HEMOGLOBIN. 9.4 g/dL (14.0-18.0); LYMPHOCYTES % 14.6 % (20.0-50.0); MEAN CORPUSCULAR HEMOGLOBIN 31.2 pg (28.0-32.0); MEAN CORPUSCULAR HGB CONC 33.5 g/dL (31.0-37.0); MEAN PLATELET VOLUME 9.7 fl (7.4-10.4); MONOCYTES % 12.3 % (2.0-8.0); NEUTROPHILS % 71.1 % (40.0-76.0); PLATELET 226 x1000/uL (130-400); WHITE BLOOD COUNT 8.2 x1000/uL (4.5-11.0)
[2025-04-24 10:28] LABS: DIFFERENTIAL COMMENT 1
[2025-04-24 10:29] LABS: ADD RBC MORPHOLOGY NO
[2025-04-24 10:36] LABS: CALCIUM 8.6 mg/dL (8.7-10.4); POTASSIUM 4.2 mEq/L (3.5-5.1)
[2025-04-24 10:42] LABS: CREATININE 1.6 mg/dL (0.6-1.3)
[2025-04-24 12:00] VITALS: BP 120/75; PULSE 65; RESP 19; TEMP 36.3; O2SAT 96
[2025-04-24 16:00] VITALS: BP 110/79; PULSE 89; RESP 20; TEMP 36.5; O2SAT 99
[2025-04-24 20:00] VITALS: BP 102/80; PULSE 88; RESP 20; TEMP 36.2; O2SAT 99
[2025-04-25] VITALS (7 sets, daily range): BP systolic 105–119; BP diastolic 75–97; PULSE 71–100; RESP 19–21; TEMP 36.1–36.6; O2SAT 85–99
[2025-04-25 07:39] LABS: POTASSIUM 4.5 mEq/L (3.5-5.1)
[2025-04-25 07:46] LABS: CREATININE 1.4 mg/dL (0.6-1.3)
[2025-04-25 07:49] LABS: BASOPHILS % 0.5 % (0.0-2.0); EOSINOPHILS % 0.4 % (0.0-5.0); HEMATOCRIT. 27.6 % (42.0-52.0); HEMOGLOBIN. 9.2 g/dL (14.0-18.0); LYMPHOCYTES % 12.2 % (20.0-50.0); MEAN CORPUSCULAR HEMOGLOBIN 30.9 pg (28.0-32.0); MEAN CORPUSCULAR HGB CONC 33.1 g/dL (31.0-37.0); MEAN CORPUSCULAR VOLUME 93.4 fL (80.0-94.0); MEAN PLATELET VOLUME 9.3 fl (7.4-10.4); MONOCYTES % 14.1 % (2.0-8.0); NEUTROPHILS % 72.8 % (40.0-76.0); PLATELET 220 x1000/uL (130-400); RED BLOOD CELL COUNT 2.96 mill/uL (4.7-6.1); RED CELL DISTRIBUTION WIDTH 23.5 % (11.6-14.6); WHITE BLOOD COUNT 7.5 x1000/uL (4.5-11.0)
[2025-04-25 08:16] LABS: ADD RBC MORPHOLOGY NO; DIFFERENTIAL COMMENT 1
[2025-04-25] MEDS: IPRATROPIUM/ALBUTEROL 0.5-3(2.5)MG/3ML NEB HHN SCH (14:54)
[2025-04-26] VITALS (11 sets, daily range): BP systolic 101–120; BP diastolic 65–83; PULSE 47–94; RESP 18–24; TEMP 35.6–36.4; O2SAT 75–99
[2025-04-26] MEDS: IPRATROPIUM/ALBUTEROL 0.5-3(2.5)MG/3ML NEB HHN PRN (06:20)
[2025-04-26 06:22] LABS: BASOPHILS % 0.6 % (0.0-2.0); EOSINOPHILS % 0.2 % (0.0-5.0); HEMATOCRIT. 28.2 % (42.0-52.0); HEMOGLOBIN. 9.3 g/dL (14.0-18.0); LYMPHOCYTES % 11.7 % (20.0-50.0); MEAN CORPUSCULAR HEMOGLOBIN 31.5 pg (28.0-32.0); MEAN CORPUSCULAR HGB CONC 32.9 g/dL (31.0-37.0); MEAN CORPUSCULAR VOLUME 95.7 fL (80.0-94.0); MEAN PLATELET VOLUME 9.4 fl (7.4-10.4); MONOCYTES % 13.4 % (2.0-8.0); NEUTROPHILS % 74.1 % (40.0-76.0); PLATELET 227 x1000/uL (130-400); RED BLOOD CELL COUNT 2.95 mill/uL (4.7-6.1); RED CELL DISTRIBUTION WIDTH 24.9 % (11.6-14.6); WHITE BLOOD COUNT 7.8 x1000/uL (4.5-11.0)
[2025-04-26 06:39] LABS: CHLORIDE 105 mEq/L (98-107); POTASSIUM 4.2 mEq/L (3.5-5.1); SODIUM 139 mEq/L (136-145)
[2025-04-26 06:40] LABS: CALCIUM 8.8 mg/dL (8.7-10.4); CARBON DIOXIDE 24 mEq/L (21-32)
[2025-04-26 06:45] LABS: CREATININE 1.4 mg/dL (0.6-1.3); GLUCOSE 113 mg/dL (70-105); UREA NITROGEN BLOOD 39 mg/dL (9-23)
[2025-04-26 06:47] LABS: ALANINE AMINOTRANSFERASE 55 IU/L (10-49); ALBUMIN 3.4 g/dL (3.2-4.8); ASPARTATE AMINOTRANSFERASE 45 IU/L (<34); BILIRUBIN TOTAL 6.1 mg/dL (0.1-1.0); PROTEIN TOTAL 7.1 g/dL (6.0-8.3)
[2025-04-26 07:01] LABS: DIFFERENTIAL COMMENT 1
[2025-04-26] MEDS: ACETYLCYSTEINE 200MG/ML 20% VIAL 4ML INH SCH (11:04)
[2025-04-26] MEDS: GUAIFENESIN 200MG/10ML SUGAR FREE UDC PO PRN (11:53)
[2025-04-26] MEDS ORDERED: ACETYLCYSTEINE 200MG/ML 20% VIAL 4ML INH SCH (14:00)
[2025-04-26] MEDS: SODIUM CHLORIDE 45ML SPRAY NS SCH (17:55)
[2025-04-27] VITALS (9 sets, daily range): BP systolic 105–139; BP diastolic 69–91; PULSE 63–93; RESP 18–24; TEMP 36.1–36.4; O2SAT 91–99
[2025-04-27] MEDS: GUAIFENESIN 600MG ER TABLET PO SCH (03:05)
[2025-04-27] MEDS: FUROSEMIDE 40MG/4ML VIAL IVP SCH (16:35)
[2025-04-28] VITALS (9 sets, daily range): BP systolic 98–127; BP diastolic 56–91; PULSE 80–102; RESP 18–24; TEMP 36–36.4; O2SAT 95–100
[2025-04-28] MEDS: AZITHROMYCIN 500 MG TABLET PO SCH (12:24)
[2025-04-28 15:55] LABS: HEMATOCRIT. 30.3 % (42.0-52.0); HEMOGLOBIN. 9.6 g/dL (14.0-18.0); MEAN CORPUSCULAR HEMOGLOBIN 31.3 pg (28.0-32.0); MEAN CORPUSCULAR HGB CONC 31.6 g/dL (31.0-37.0); MEAN PLATELET VOLUME 9.1 fl (7.4-10.4); PLATELET 219 x1000/uL (130-400); RED BLOOD CELL COUNT 3.06 mill/uL (4.7-6.1); RED CELL DISTRIBUTION WIDTH 26.8 % (11.6-14.6); WHITE BLOOD COUNT 8.2 x1000/uL (4.5-11.0)
[2025-04-28 15:59] LABS: DIFFERENTIAL COMMENT 1
[2025-04-28 16:26] LABS: MICROCYTOSIS 1+; PLATELET ESTIMATE NORMAL; ROULEAUX 1+
[2025-04-28] MEDS: FUROSEMIDE 40MG/4ML VIAL IV SCH (17:09)
[2025-04-29] VITALS (9 sets, daily range): BP systolic 97–111; BP diastolic 59–69; PULSE 59–86; RESP 17–20; TEMP 36.2–36.3; O2SAT 93–100
[2025-04-29 08:05] LABS: HEMATOCRIT. 30.5 % (42.0-52.0); HEMOGLOBIN. 9.7 g/dL (14.0-18.0); MEAN CORPUSCULAR HEMOGLOBIN 30.9 pg (28.0-32.0); MEAN CORPUSCULAR HGB CONC 31.9 g/dL (31.0-37.0); MEAN CORPUSCULAR VOLUME 97.1 fL (80.0-94.0); MEAN PLATELET VOLUME 8.7 fl (7.4-10.4); PLATELET 240 x1000/uL (130-400); RED BLOOD CELL COUNT 3.14 mill/uL (4.7-6.1); RED CELL DISTRIBUTION WIDTH 25.8 % (11.6-14.6); WHITE BLOOD COUNT 8.3 x1000/uL (4.5-11.0)
[2025-04-29 08:10] LABS: INR 1.2; PROTHROMBIN TIME 12.9 sec (9.6-11.0)
[2025-04-29 08:12] LABS: DIFFERENTIAL COMMENT 1
[2025-04-29 08:13] LABS: CHLORIDE 102 mEq/L (98-107); POTASSIUM 3.7 mEq/L (3.5-5.1); SODIUM 142 mEq/L (136-145)
[2025-04-29 08:14] LABS: CALCIUM 8.4 mg/dL (8.7-10.4); CARBON DIOXIDE 29 mEq/L (21-32)
[2025-04-29 08:19] LABS: ALANINE AMINOTRANSFERASE 63 IU/L (10-49); CREATININE 1.2 mg/dL (0.6-1.3); GLUCOSE 79 mg/dL (70-105); UREA NITROGEN BLOOD 30 mg/dL (9-23)
[2025-04-29 08:21] LABS: ALBUMIN 3.3 g/dL (3.2-4.8); ASPARTATE AMINOTRANSFERASE 56 IU/L (<34); BILIRUBIN TOTAL 5.5 mg/dL (0.1-1.0); PROTEIN TOTAL 7.1 g/dL (6.0-8.3)
[2025-04-29 16:26] LABS: ANISOCYTOSIS 2+; PLATELET ESTIMATE NORMAL
[2025-04-30] VITALS (8 sets, daily range): BP systolic 101–134; BP diastolic 48–78; PULSE 74–107; RESP 18–20; TEMP 36.2–36.7; O2SAT 93–99
[2025-05-01] VITALS: BP 112/82; PULSE 72; RESP 19; TEMP 36.3; O2SAT 97
== END 2025-05-01 06:17 | DRG 871 ==
LOC: ER 06:16 → EDBEDREQ 06:46 → EDBEDREQTM 08:22 → EDBEDREQ 08:22 → CANRESERV 08:26 → ENRESERV 08:26 → EDBEDREQSVC 08:56 → EDBEDREQTM 08:56 → ENRESERV 09:31 → CVICU 09:59 → 5EST 04-15 10:39 → 8EST 04-22 23:45
PROVIDERS: ADMIT Internal Medicine; ATTEND Internal Medicine
PROC: 06HY33Z Insertion of Infusion Device into Lower Vein, Percutaneous Approach (ICD-10-PCS; principal; 2025-04-11)
PROC: B54BZZA Ultrasonography of Right Lower Extremity Veins, Guidance (ICD-10-PCS; 2025-04-11)
PROC: 5A2204Z Restoration of Cardiac Rhythm, Single (ICD-10-PCS; 2025-04-11)
PROC: 5A12012 Performance of Cardiac Output, Single, Manual (ICD-10-PCS; 2025-05-01)
DX: A41.9 Sepsis, unspecified organism (principal); D65 Disseminated intravascular coagulation [defibrination syndrome]; G92.8 Other toxic encephalopathy; N17.0 Acute kidney failure with tubular necrosis; R65.21 Severe sepsis with septic shock; I21.A1 Myocardial infarction type 2; J96.01 Acute respiratory failure with hypoxia; I50.23 Acute on chronic systolic (congestive) heart failure; K72.00 Acute and subacute hepatic failure without coma; K76.7 Hepatorenal syndrome; E87.1 Hypo-osmolality and hyponatremia; E87.20 Acidosis, unspecified; I47.20 Ventricular tachycardia, unspecified; J91.8 Pleural effusion in other conditions classified elsewhere; M62.82 Rhabdomyolysis; K92.1 Melena; E78.5 Hyperlipidemia, unspecified; J44.9 Chronic obstructive pulmonary disease, unspecified; E88.09 Other disorders of plasma-protein metabolism, not elsewhere classified; I11.0 Hypertensive heart disease with heart failure; E87.6 Hypokalemia; E83.42 Hypomagnesemia; D64.9 Anemia, unspecified; E83.39 Other disorders of phosphorus metabolism; I25.10 Atherosclerotic heart disease of native coronary artery without angina pectoris; I46.9 Cardiac arrest, cause unspecified; I49.3 Ventricular premature depolarization; K64.8 Other hemorrhoids; K52.9 Noninfective gastroenteritis and colitis, unspecified; K70.11 Alcoholic hepatitis with ascites; E86.1 Hypovolemia; K75.4 Autoimmune hepatitis; K76.1 Chronic passive congestion of liver; E11.65 Type 2 diabetes mellitus with hyperglycemia; E11.649 Type 2 diabetes mellitus with hypoglycemia without coma; T50.995A Adverse effect of other drugs, medicaments and biological substances, initial encounter; K82.8 Other specified diseases of gallbladder; F19.10 Other psychoactive substance abuse, uncomplicated; N40.0 Benign prostatic hyperplasia without lower urinary tract symptoms; R04.0 Epistaxis; I44.0 Atrioventricular block, first degree; F17.200 Nicotine dependence, unspecified, uncomplicated; Z60.2 Problems related to living alone; Z78.1 Physical restraint status; Z79.899 Other long term (current) drug therapy; Z88.0 Allergy status to penicillin; Z95.5 Presence of coronary angioplasty implant and graft; Y92.89 Other specified places as the place of occurrence of the external cause
CPT/HCPCS: 31720; 36415; 36600; 71045; 71250; 74176; 74181; 76705; 80048; 80053; 80061; 80076; 80202; 80305; 80320; 81003; 82105; 82140; 82248; 82270; 82375; 82378; 82533; 82550; 82553; 82787; 82805; 82962; 83036; 83516; 83520; 83605; 83735; 83880; 83930; 83935; 84100; 84132; 84145; 84300; 84443; 84484; 85014; 85018; 85025; 85027; 85362; 85384; 86038; 86256; 86301; 86705; 86709; 86850; 86900; 87070; 87340; 92610; 92950; 93005; 93306; 93970; 94070; 94640; 94664; 94760; 97110; 97116; 97161; 97166; 97530; 97535; 98960; 99291; A4606; A6449; J0610; J0692; J0696; J1250; J1308; J1650; J1940; J2003; J2185; J2270; J2371; J2405; J2470; J3010; J3370; J3411; J3475; J3480; J3490; J7030; J7042; J7060; J7512; J7608; P9041